=== PATIENT | female | born 1930 | race Caucasian/White ===

== ENCOUNTER 2020-06-20 14:06 | Outpatient (CLI) | payer MEDICARE, OTHER ==
[~2020-06-20 14:06] MED LIST: AMLO2.5T2 PO; COL100C PO; ERGO500014 PO; IMO2C PO; MAGN-64 PO; NAPR-56 PO; NORCO10T PO; SYN0.025T PO; ZOF4T PO
== END 2020-06-20 23:59 | disposition home or self-care (01) ==
LOC: CARD DIAG 14:06
PROVIDERS: ATTEND Internal Medicine Cardiovascular Disease
DX: I08.8 Other rheumatic multiple valve diseases (principal)
CPT/HCPCS: 93306